=== PATIENT | male | born 1960 | race Two or more races ===

== ENCOUNTER 2019-08-15 10:57 | Emergency (ER) | payer SELFPAY ==
[~2019-08-15] VITALS: Ht 182.9 cm; Wt 115.0 kg
[2019-08-15 11:02] VITALS: BP 153/92
[2019-08-15] MEDS ORDERED: methylPREDNISolone SOD SUCC PF 125 MG/2 ML VIAL. IM ONE (11:15)
--- NOTE | 2019-08-15 11:18 | PHYS DOC ---
Past Medical History Past Medical History: High Cholesterol Past Surgical History: No Surgical History Smoking Status: Never Smoker Alcohol Use: None General Adult EDM: Chief Complaint: COUGH HPI: HPI: Patient is a 58-year-old male who is recently been diagnosed with bronchitis. He seen his primary care physician and prescribed albuterol metered-dose inhaler as well as an H2 sudarshan. The primary care physician thinks is more related to reflux. He has not had any fever chills or sweats he has no anosmia or taste issues. He denies being significantly short of breath. [] Review of Systems: Review of Systems: Constitutional: Denies fever or chills. [] Eyes: Denies change in visual acuity. [] HENT: Denies nasal congestion or sore throat. [] Respiratory: Per HPI. [] Cardiovascular: Denies chest pain or edema. [] GI: Denies abdominal pain, nausea, vomiting, bloody stools or diarrhea. [] : Denies dysuria. [] Musculoskeletal: Denies back pain or joint pain. [] Integument: Denies rash. [] Neurologic: Denies headache, focal weakness or sensory changes. [] Endocrine: Denies polyuria or polydipsia. [] Lymphatic: Denies swollen glands. [] Psychiatric: Denies depression or anxiety. [] Heart Score: Risk Factors: Risk Factors: DM, Current or recent (<one month) smoker, HTN, HLP, family history of CAD, obesity. Risk Scores: Score 0 - 3: 2.5% MACE over next 6 weeks - Discharge Home Score 4 - 6: 20.3% MACE over next 6 weeks - Admit for Clinical Observation Score 7 - 10: 72.7% MACE over next 6 weeks - Early Invasive Strategies Allergies: Allergies: Allergies Coded Allergies Type Severity Reaction Last Updated Verified No Known Drug Allergies 08/15/19 No Physical Exam: PE: Constitutional: Well developed, well nourished, no acute distress, non-toxic appearance. [] HENT: Normocephalic, atraumatic, bilateral external ears normal, oropharynx moist, no oral exudates, nose normal. [] Eyes: PERRLA, EOMI, conjunctiva normal, no discharge. [] Neck: Normal range of motion, no tenderness, supple, no stridor. [] Cardiovascular:Heart rate regular rhythm, no murmur [] Lungs & Thorax: Bilateral breath sounds clear to auscultation [] Abdomen: Bowel sounds normal, soft, no tenderness, no masses, no pulsatile masses. [] Skin: Warm, dry, no erythema, no rash. [] Back: No tenderness, no CVA tenderness. [] Extremities: No tenderness, no cyanosis, no clubbing, ROM intact, no edema. [] Neurologic: Alert and oriented X 3, normal motor function, normal sensory function, no focal deficits noted. [] Psychologic: Affect normal, judgement normal, mood normal. [] Current Patient Data: Vital Signs: Vital Signs Date Time Temp Pulse Resp B/P (MAP) Pulse Ox O2 Delivery O2 Flow Rate FiO2 08/15/19 11:02 98.3 94 16 153/92 (112) 96 Room Air 98.3 EKG: EKG: [] Radiology/Procedures: Radiology/Procedures: [] Impression: REASON: Cough PROCEDURE: CHEST AP ONLY INDICATION: Cough COMPARISON: None. FINDINGS: Single view of chest obtained. Mild haziness the left greater than right lung base. Mild prominence of the interstitial markings. Cardiac silhouette unremarkable IMPRESSION: * Mild haziness at the lung bases. Could be secondary to atelectasis or early infiltrate. Course & Med Decision Making: Course & Med Decision Making Pertinent Labs and Imaging studies reviewed. (See chart for details) [] Dragon Disclaimer: Dragon Disclaimer: This electronic medical record was generated, in whole or in part, using a voice recognition dictation system. Departure Departure Impression: Primary Impression: Pneumonia Qualified Codes: J18.9 - Pneumonia, unspecified organism Additional Impression: Bronchospasm with bronchitis, acute Disposition: 01 HOME, SELF-CARE Condition: STABLE Referrals: NO PCP (PCP) Patient Instructions: Acute Bronchitis, Pneumonia, Adult Scripts Prednisone (PREDNISONE) 20 Mg Tablet 3 TAB PO DAILY PRN for COUGH for 5 Days, #15 TAB Prov: BENIGNO MOELLER DO 08/15/19 Levofloxacin (LEVAQUIN) 500 Mg Tablet 1 TAB PO DAILY for pneumonia, #10 TAB Prov: BENIGNO MOELLER DO 08/15/19 BENIGNO MOELLER DO Aug 15, 2019 11:18
--- NOTE | 2019-08-15 11:51 | RAD ---
INDICATION: Cough COMPARISON: None. FINDINGS: Single view of chest obtained. Mild haziness the left greater than right lung base. Mild prominence of the interstitial markings. Cardiac silhouette unremarkable IMPRESSION: * Mild haziness at the lung bases. Could be secondary to atelectasis or early infiltrate. Electronically signed by: Lalo Grant MD (08/15/2019 11:48 AM) [id number]
[2019-08-15] MEDS ORDERED: LEVO500T59 PO (12:03)
[2019-08-15] MEDS ORDERED: PRED20TA PO (12:03)
== END 2019-08-15 12:11 | disposition home or self-care (01) ==
LOC: ER 10:57
DX: J18.9 Pneumonia, unspecified organism (principal); J20.9 Acute bronchitis, unspecified; E78.00 Pure hypercholesterolemia, unspecified
CPT/HCPCS: 71045; 96372; 99283; J2930